=== PATIENT | male | born 1960 | race Caucasian/White ===

== ENCOUNTER 2017-05-12 20:37 | Emergency (ER) | payer MEDICAID ==
[~2017-05-12] VITALS: Ht 175.3 cm; Wt 75.0 kg
[2017-05-12 22:43] LABS: DAU SCREEN DISCLAIMER
[2017-05-12 22:46] LABS: HEMATOCRIT 32.6 % (39.2-51.8); HEMOGLOBIN 11.2 g/dL (13.7-18.0); WHITE BLOOD COUNT 10.6 x10^3/uL (3.4-10)
[2017-05-12 22:59] LABS: ASPARTATE AMINO TRANSFERASE 29 U/L (15-37); BLOOD UREA NITROGEN 24 mg/dL (7-18)
[2017-05-12 23:01] LABS: VALPROIC ACID 4.3 mcg/mL (50.0-100.0)
[2017-05-12 23:42] VITALS: BP 101/67
[2017-05-13] MEDS ORDERED: DIVA125T2 PO (07:10)
[2017-05-13] MEDS ORDERED: [UNRECOGNIZED DRUG - REMARK] (07:11)
[2017-05-13] MEDS ORDERED: HYDR-3240 PO (07:11)
== END 2017-05-12 23:45 | disposition home or self-care (01) ==
LOC: EDBD 20:37 → ED 23:30
DX: R60.0 Localized edema (principal); E86.0 Dehydration; F41.9 Anxiety disorder, unspecified; R32 Unspecified urinary incontinence; I10 Essential (primary) hypertension; Z86.718 Personal history of other venous thrombosis and embolism; Z72.89 Other problems related to lifestyle; Z79.899 Other long term (current) drug therapy
CPT/HCPCS: 36415; 70450; 71010; 80053; 80164; 80307; 81003; 83735; 85025; 93005; 93970; 99285; G0479

== ENCOUNTER 2017-05-13 06:27 | Emergency (ER) | payer MEDICAID ==
[~2017-05-13] VITALS: Ht 175.3 cm; Wt 76.8 kg
[2017-05-13] MEDS ORDERED: DIVA125T2 PO (07:10)
[2017-05-13] MEDS ORDERED: [UNRECOGNIZED DRUG - REMARK] (07:11)
[2017-05-13] MEDS ORDERED: HYDR-3240 PO (07:11)
[2017-05-13 09:24] VITALS: BP 144/80
== END 2017-05-13 10:18 | disposition home or self-care (01) ==
LOC: ED 08:40
DX: R07.2 Precordial pain (principal); F10.10 Alcohol abuse, uncomplicated; M54.2 Cervicalgia; G89.29 Other chronic pain; I10 Essential (primary) hypertension; Y90.9 Presence of alcohol in blood, level not specified; Z88.5 Allergy status to narcotic agent; Z88.8 Allergy status to other drugs, medicaments and biological substances; Z86.718 Personal history of other venous thrombosis and embolism; Z72.89 Other problems related to lifestyle
CPT/HCPCS: 93005; 99284

== ENCOUNTER 2017-05-14 20:46 | Emergency (ER) | payer MEDICAID ==
[~2017-05-14] VITALS: Ht 167.6 cm; Wt 64.8 kg
[~2017-05-14 20:46] MED LIST: DIVA125T2 PO; HYDR-3240 PO; [UNRECOGNIZED DRUG - REMARK]
[2017-05-14 21:07] VITALS: BP 138/84
[2017-05-14] MEDS ORDERED: ACETAMINOPHEN 325 MG TABLET PO ONE (21:30)
[2017-05-14] MEDS ORDERED: IBUPROFEN 200 MG TABLET PO ONE (21:30)
[2017-05-14] MEDS ORDERED: ACETAMINOPHEN 325 MG TABLET ONE (21:32)
[2017-05-14] MEDS ORDERED: IBUPROFEN 200 MG TABLET ONE (21:32)
== END 2017-05-14 23:04 | disposition home or self-care (01) ==
LOC: ED 22:32
DX: R52 Pain, unspecified (principal); I10 Essential (primary) hypertension; Z72.9 Problem related to lifestyle, unspecified; Z88.5 Allergy status to narcotic agent; Z88.8 Allergy status to other drugs, medicaments and biological substances; Z86.718 Personal history of other venous thrombosis and embolism
CPT/HCPCS: 36415; 80307; 99283; G0479

== ENCOUNTER 2017-05-15 04:31 | Emergency (ER) | payer MEDICAID ==
[~2017-05-15] VITALS: Ht 177.8 cm; Wt 74.3 kg
[2017-05-15 04:39] VITALS: BP 149/86
== END 2017-05-15 08:05 | disposition home or self-care (01) ==
LOC: ED 05:20
DX: M79.672 Pain in left foot (principal); I10 Essential (primary) hypertension; Z76.5 Malingerer [conscious simulation]; Z59.0 Homelessness; Z72.89 Other problems related to lifestyle; Z86.718 Personal history of other venous thrombosis and embolism
CPT/HCPCS: 99282; 99283

== ENCOUNTER 2017-05-22 17:34 | Emergency (ER) | payer MEDICAID ==
[~2017-05-22] VITALS: Ht 175.3 cm; Wt 75.0 kg
[2017-05-22 18:14] VITALS: BP 130/86
== END 2017-05-22 19:29 | disposition home or self-care (01) ==
LOC: ED 18:42
DX: S90.02XA Contusion of left ankle, initial encounter (principal); S90.01XA Contusion of right ankle, initial encounter; I10 Essential (primary) hypertension; Z86.718 Personal history of other venous thrombosis and embolism; Z87.898 Personal history of other specified conditions; Z59.0 Homelessness; W01.0XXA Fall on same level from slipping, tripping and stumbling without subsequent striking against object, initial encounter; Y93.89 Activity, other specified; Y99.8 Other external cause status; Y92.410 Unspecified street and highway as the place of occurrence of the external cause
CPT/HCPCS: 99284

== ENCOUNTER 2017-05-25 19:43 | Emergency (ER) | payer MEDICAID ==
[~2017-05-25] VITALS: Ht 175.3 cm; Wt 65.2 kg
[2017-05-25 19:51] VITALS: BP 132/79
== END 2017-05-25 21:55 | disposition home or self-care (01) ==
LOC: ED 20:59
DX: S16.1XXA Strain of muscle, fascia and tendon at neck level, initial encounter (principal); G89.11 Acute pain due to trauma; I10 Essential (primary) hypertension; Z59.0 Homelessness; W06.XXXA Fall from bed, initial encounter; Y93.89 Activity, other specified; Y92.098 Other place in other non-institutional residence as the place of occurrence of the external cause; Y99.8 Other external cause status
CPT/HCPCS: 72050; 99284

== ENCOUNTER 2017-05-26 20:05 | Emergency (ER) | payer MEDICAID ==
[~2017-05-26] VITALS: Ht 172.7 cm; Wt 75.0 kg
[2017-05-26 20:10] VITALS: BP 162/96
== END 2017-05-26 22:25 | disposition home or self-care (01) ==
LOC: ED 21:45
DX: M79.671 Pain in right foot (principal); G89.11 Acute pain due to trauma
CPT/HCPCS: 99284